=== PATIENT | female | born 1995 | race Caucasian/White ===

== ENCOUNTER 2023-05-29 08:09 | Inpatient (IN) ==
[2023-05-29] MEDS ORDERED: LIDOCAINE 1% LOCAL 20 ML VIAL INFIL PRN (08:50)
[2023-05-29] MEDS ORDERED: OXYTOCIN 30 UNITS/500 ML BAG IV PRN ×3 (08:50→19:52)
--- NOTE | 2023-05-29 08:53 | History & Physical Report ---
Date of Service May 29, 2023 Assessment & Plan (1) 37 weeks gestation of : (2) Pre-eclampsia in third trimester: (3) Rh negative status during : Plan admit, iv, labs. fhts categ 1. start pitocin. may need to reattempt arom. currently no evid of severe features. Admission and Anticipated Discharge Date Admission Date: May 29, 2023 History of Present Illness Chief Complaint: planned induction Primary Care Provider: Mahnaz Del Cid MD 27yo at 37+wks gloria presents to L&D for planned induction for preeclampsia, without severe features. Denies kaiser, visual change, ruq pain. No ctx. Regan balloon fell out at 3am today. PNC c/b 1. preeclampsia 2. rh neg PNL rh neg, ri, gbs neg OBH: g1 GYNH: nl paps, no stds Allergies Allergy/AdvReac Type Severity Reaction Status Date / Time No Known Allergies Allergy Verified 05/28/23 11:27 Home Medications Medication Instructions Recorded Confirmed Type Lactobacillus acidophilus and 1 cap PO DAILY 06/22/22 05/28/23 History rhamnosus 15 billion cell capsule (Probiotic) omega 7-ami-yih-fish oil 290 cap PO 11/01/22 05/28/23 History mg-430 mg-1.4 gram capsule (EPA-DHA 720) prenat.vits,adriel,vwn-xqrb-nabzm 1 tab PO DAILY 11/01/22 05/28/23 History magnesium PO 11/19/22 05/28/23 History Zyrtec DAILY 05/23/23 05/28/23 History Patient History Medical History Anxiety Asthma Surgical History History of ankle surgery S/P tonsillectomy S/P wisdom tooth extraction Family History Mother Crohn's disease Endometriosis Grandfather (Paternal) Esophageal cancer Non-Hodgkin lymphoma Lupus Melanoma Grandmother (Paternal) IBS (irritable bowel syndrome) Denies family history of Ovarian cancer Breast cancer Colorectal cancer Social History (Updated 11/19/22 @ 17:04 by Dannielle J Knepp) Smoking Status: Never smoker Second Hand Exposure: No; Do You Dip or Chew Tobacco: No; Tobacco Cessation Education Requested by Patient: No Hx Alcohol Use: No Hx Substance Use: No Preferred Language: Kittitian Communication Ability: Effective Visual Impairment: Limited Hearing Ability: Normal 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 Beliefs That Will Affect Care: None marital status: marital status details: Kenneth (28) [phone] Current Living Situation: Spouse Current Living Situation Comment: - Jozef current occupational status: employed 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 Other Information That Helps Us Care for You: No Feels Safe at Home: Yes Safety Concerns: Feels Safe At This Time Childhood Exposure to Second-Hand Smoke: No Diet: regular during the past year weight has: remained stable Gender Identity: Female Assistive Devices: Glasses Review of Systems as per Subjective / HPI Physical Exam Constitutional: WD/WN, vitals as above Respiratory: normal respiratory effort, lungs clear to auscultation Cardiovascular: Rate/Rhythm: regular rate and regular rhythm Gastrointestinal (Abdomen): soft gravid nt efw 7-8# Musculoskeletal: no edema nontender calves Neurologic: grossly normal DTRs +2 patellar Psychiatric: A+Ox3, euthymic affect Genitourinary: Manual OB Exam: + cervical dilation (3-4cm), + cervical effacement 50%, + station (post) -2 and + amniotic fluid (arom attempted, ? successful, will monitor) OB Exam Monitor Tracing: + external FHT monitor used, + external uterine monitor used (irreg), + category I and + normal FHT variability Results & Data Vital Signs (Past 12 Hours) Vital Signs Temp Pulse Resp BP 05/29/23 08:40 104 H 133/82 05/29/23 08:38 98.8 F 104 H 18 133/82 Coding Level of Care Code None Diagnoses 37 weeks gestation of Z3A.37 Pre-eclampsia in third trimester O14.93 Rh negative status during O26.899; Z67.91
[2023-05-29] MEDS: LACTATED RINGER'S 1,000 ML IV PRN ×2 (09:36→14:43)
[2023-05-29 09:51] LABS: Hematocrit (blood only) 35.6 % (37.0-47.0); Hemoglobin 12.7 g/dl (12.0-16.0); Mean Corpuscular Hemoglobin 32.6 pg (25.0-34.0); Mean Corpuscular Hgb Conc 35.7 g/dL (32.0-36.0); Mean Corpuscular Volume 91.5 fL (80.0-100.0); Mean Platelet Volume 11.6 fL (9.4-12.4); Platelet Count 192 K/uL (130-400); RDW Coefficient of Variation 12.7 % (11.5-14.5); RDW Standard Deviation 41.9 fL (36.4-46.3); Red Blood Count 3.89 M/uL (4.20-5.40); White Blood Count 14.45 K/ul (4.8-10.8)
[2023-05-29 10:13] LABS: Albumin Globulin Ratio 1.4 (0.9-2); Albumin Level 3.8 gm/dl (3.4-5.0); BUN Creatinine Ratio 10.3 (10-20); Bilirubin,Total 0.3 mg/dl (0.2-1.0); Calcium 9.5 mg/dl (8.6-10.3); Creatinine Clr Calc Pharmacy 146.8 ml/min; Est GFR (African American) 145.4 ml/min; Est GFR (Non-African American) 125.4 ml/min; Globulin 2.8 gm/dl (2.5-4.0); Total Protein 6.6 gm/dl (6.0-8.3)
--- NOTE | 2023-05-29 14:12 | Labor Progress Brief Note ---
Date of Service May 29, 2023 Subjective late entry, pt on birthing ball. breathing with some ctx. Assessment & Plan (1) 37 weeks gestation of : (2) Pre-eclampsia in third trimester: Plan progressing in labor, latent phase. will c/w pit. fhts categ 1. Admission and Anticipated Discharge Date Admission Date: May 29, 2023 Physical Exam Constitutional: WD/WN, vitals as above Genitourinary: Manual OB Exam: + cervical dilation 5 cm, + cervical effacement 50% and + station (mid position) -2 OB Exam Monitor Tracing: + external FHT monitor used, + external uterine monitor used (q2-3 pit at 9) and + category I Results & Data Vital Signs (Past 12 Hours) Vital Signs Temp Pulse Resp BP 05/29/23 14:09 90 140/68 05/29/23 13:39 83 133/72 05/29/23 13:10 82 136/78 05/29/23 12:30 97.9 F 05/29/23 12:39 87 132/75 05/29/23 12:10 82 139/76 05/29/23 11:40 77 131/79 05/29/23 11:09 81 132/84 05/29/23 10:39 86 136/77 05/29/23 10:30 97.9 F 05/29/23 10:10 77 133/74 05/29/23 08:45 98.8 F 05/29/23 09:39 84 134/79 05/29/23 08:40 104 H 133/82 05/29/23 08:38 98.8 F 104 H 18 133/82 Coding Level of Care Code None Diagnoses 37 weeks gestation of Z3A.37 Pre-eclampsia in third trimester O14.93
[2023-05-29] MEDS ORDERED: ePHEDrine sulfate 50 MG/ML AMP ONE (14:35)
[2023-05-29] MEDS ORDERED: BUPIVACAINE 0.25% PF 30 ML VIAL ONE (14:35)
[2023-05-29] MEDS ORDERED: LIDOCAINE 2%/EPINEPHRINE 1:200,000 20 ML PF ONE (14:35)
[2023-05-29] MEDS ORDERED: SODIUM CHLORIDE 0.9% PF INJ 10 ML VIAL ONE (14:35)
[2023-05-29] MEDS ORDERED: fentaNYL 2MCG/ML ROPIVACAINE 1.25MG/ML 100 ML BAG EPI ONE (14:35)
[2023-05-29] MEDS ORDERED: fentaNYL citrate PF 100 MCG/2 ML VIAL ONE (14:35)
[2023-05-29] MEDS ORDERED: ROPIVACAINE 0.5% PF 5 MG/ML 20 ML VIAL EPI PRN (14:39)
[2023-05-29] MEDS ORDERED: ePHEDrine sulfate 50 MG/ML AMP IV PRN (14:39)
[2023-05-29] MEDS ORDERED: fentaNYL 2MCG/ML ROPIVACAINE 1.25MG/ML 100 ML BAG EPI PRN (14:39)
[2023-05-29] MEDS ORDERED: NALOXONE HCL 1 MG in SODIUM CHLORIDE 0.9% 1,000 ML IV PRN (14:39)
[2023-05-29] MEDS ORDERED: diphenhydrAMINE 50 MG/ML VIAL IV PRN (14:39)
[2023-05-29] MEDS ORDERED: NALBUPHINE HCL INJ 10 MG/ML AMP IV PRN (14:39)
[2023-05-29] MEDS ORDERED: SODIUM CHLORIDE 0.9% PF INJ 10 ML VIAL EPI STA (14:39)
[2023-05-29] MEDS ORDERED: LIDOCAINE 2% MPF LOCAL 5 ML VIAL EPI PRN (14:39)
[2023-05-29] MEDS ORDERED: BUPIVACAINE 0.25% PF 30 ML VIAL EPI PRN (14:39)
[2023-05-29] MEDS ORDERED: LIDOCAINE 2%/EPINEPHRINE 1:200,000 20 ML PF EPI STA (14:39)
[2023-05-29] MEDS ORDERED: fentaNYL citrate PF 100 MCG/2 ML VIAL EPI PRN (14:39)
[2023-05-29] MEDS ORDERED: fentaNYL citrate PF 100 MCG/2 ML VIAL EPI STA (14:39)
[2023-05-29] MEDS ORDERED: BUPIVACAINE 0.25% PF 30 ML VIAL EPI STA (14:39)
[2023-05-29] MEDS ORDERED: SODIUM CHLORIDE 0.9% PF INJ 10 ML VIAL EPI PRN (14:39)
[2023-05-29] MEDS ORDERED: NALOXONE HCL 0.4 MG/1 ML VIAL/CARP IV PRN (14:39)
--- NOTE | 2023-05-29 14:41 | Anesthesiology Consultation ---
Date of Service May 29, 2023 Assessment & Plan Chart Review Chart Review: Patient NOT seen in Pre Admission Testing and Acceptable Risk for Labor Epidural History Height/Weight Height: 5 ft 4 in Weight: 78.925 kg Allergies Allergy/AdvReac Type Severity Reaction Status Date / Time No Known Allergies Allergy Verified 05/28/23 11:27 Medications Home Medications Medication Instructions Recorded Confirmed Last Taken Lactobacillus acidophilus and 1 cap PO DAILY 06/22/22 05/29/23 05/23/23 09:00 rhamnosus 15 billion cell capsule (Probiotic) omega 9-cso-tdp-fish oil 290 cap PO 11/01/22 05/28/23 05/23/23 09:00 mg-430 mg-1.4 gram capsule (EPA-DHA 720) prenat.vits,adriel,jrg-cuia-tqndr 1 tab PO DAILY 11/01/22 05/28/23 05/23/23 0900 magnesium PO 11/19/22 05/28/23 05/23/23 0900 Zyrtec DAILY 05/23/23 05/28/23 05/23/23 09:00 Active Medications Generic Name Dose Route Start Last Admin Trade Name Freq PRN Reason Stop Dose Admin Oxytocin 30 units in 500 mls @ 9 mls/hr 05/29/23 08:50 05/29/23 12:30 Pitocin IV 05/31/23 08:49 0.54 units/hr .Q24H PRN 9 mls/hr Labor Induction/Augmentation Titration Protocol 0.54 UNITS/HR Lactated Ringer's 1,000 mls @ 125 mls/hr 05/29/23 08:50 05/29/23 09:36 Lr IV 05/31/23 08:49 125 mls/hr .Q8H PRN Administration L&D Protocol Protocol Past Medical History Medical History (Updated 05/29/23 @ 14:12 by Pastora Wilde MD, FACOG) Anxiety Asthma Constipation Past Family History Family History Mother Crohn's disease Endometriosis Grandfather (Paternal) Esophageal cancer Non-Hodgkin lymphoma Lupus Melanoma Grandmother (Paternal) IBS (irritable bowel syndrome) Denies family history of Ovarian cancer Breast cancer Colorectal cancer Past Surgical History Surgical History History of ankle surgery 2017 S/P tonsillectomy S/P wisdom tooth extraction Social History Smoking Status: Never smoker Do You Dip or Chew Tobacco: No Hx Alcohol Use: No Hx Substance Use: No Review of Systems Constitutional: as per Subjective / HPI Physical Exam Vital Signs Last Vital Signs Temp 36.6 C 05/29/23 12:30 Pulse 91 H 05/29/23 14:38 Resp 18 05/29/23 08:38 BP 146/74 H 05/29/23 14:40 Pulse Ox 93 05/29/23 14:38 Constitutional WD/WN, vitals as above Respiratory normal respiratory effort, lungs clear to auscultation Cardiovascular Rate/Rhythm: regular rate and regular rhythm Psychiatric A+Ox3, euthymic affect Genitourinary Manual OB Exam: + cervical dilation + 5 cm, + cervical effacement + 50%, + station (mid position) + -2 and + amniotic fluid (arom attempted, ? successful, will monitor) OB Exam Monitor Tracing: + external FHT monitor used, + external uterine monitor used (q2-3 pit at 9), + category I and + normal FHT variability Testing Laboratory Results 05/29/23 09:20 05/29/23 09:20
[2023-05-29] MEDS ORDERED: CALCIUM CARBONATE 500 MG CHEWABLE TAB PO PRN (16:36)
[2023-05-29] MEDS ORDERED: DIPHTHERIA/TETANUS/PERTUSSIS Vaccine (Tdap, Age 7+yrs) 0.5mL SYR/VL IM ONE (19:52)
[2023-05-29] MEDS ORDERED: oxyCODONE/ACETAMINOPHEN 5mg/325mg TAB PO PRN (19:52)
[2023-05-29] MEDS ORDERED: HYDROCORTISONE ACETATE 25 MG SUPP PR PRN (19:52)
[2023-05-29] MEDS ORDERED: BENZOCAINE 20% SPRY 85 APPLN/85 GM CAN EXT PRN (19:52)
[2023-05-29] MEDS ORDERED: bisacodyL 10 MG SUPP PR PRN (19:52)
[2023-05-29] MEDS ORDERED: ACETAMINOPHEN 325 MG TAB PO PRN (19:52)
--- NOTE | 2023-05-29 20:03 | Anesthesia Procedure Note ---
Date of Service May 29, 2023 Anesthesia Post Epidural Note Vital Signs Vital Signs: Temp Pulse Resp BP Pulse Ox 36.7 C 93 H 18 141/63 H 97 05/29/23 18:30 05/29/23 19:58 05/29/23 19:43 05/29/23 19:58 05/29/23 19:40 Notes Mental Status: alert / awake / arousable and participated in evaluation Nausea / Vomiting: adequately controlled Pain: adequately controlled Airway Patency, RR, SpO2: stable & adequate BP & HR: stable & adequate Hydration State: stable & adequate Neuraxial Anesthesia: was administered and sensory block is resolving Anesthetic Complications: no major complications apparent and Pt Satisfied with anesthetic care Epidural: Removed without complications and With tip intact
[2023-05-29] MEDS: IBUPROFEN 600 MG TAB PO PRN (21:00)
[2023-05-29] MEDS: DOCUSATE SODIUM 100 MG CAP PO SCH (21:06)
[2023-05-30] MEDS: IBUPROFEN 600 MG TAB PO PRN ×4 (04:31→21:57)
--- NOTE | 2023-05-30 06:45 | Obstetrical Progress Note ---
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 Faye during the history and exam. I discussed the case with the resident and agree with the findings and plan as documented in the note. Any exceptions or clarifications are listed here: stable doing well, eating, voiding, ambulating, breast feeding. no rubio, visual change or ruq pain. rh neg, baby a neg. ri. abd soft ff 2 down nt, ext nt calves pod#1 s/p , mild preeclampsia, will dc home later today. bps have been stable. instructions reviewed. f/u 6wks pp. Documented By: Pastora Wilde MD, FACOG Subjective 27 yo post day 1 s/p Ambulation: ambulating normally Voiding: no voiding problems Passing Gas:: Yes Diet Tolerance:: regular diet Lochia:: Small Feeding Type:: breast feeding Current Pain Level: minimal Resting comfortably this AM. Denies RUBIO, CP, SOB, N/V/D, LE swelling/pain Review of Systems Review of Systems: reviewed, per HPI Physical Exam Physical Exam: General: patient resting comfortably, NAD, non-toxic in appearance, AA&O x 4, answers questions appropriately. Skin: warm, dry, intact HEENT: NC/AT, anicteric sclera, conjunctiva without injection, moist mucus membranes. Heart: +S1/S2, regular, no m/r/g Lungs: equal air entry bilaterally, no rales/rhonchi/wheezes Abd: +BS, soft, NT/ND, uterine fundus firm at umbilicus Ext: warm, no clubbing/cyanosis or edema, Jose's neg Neuro: nonfocal, patient AA&O x 4, speech intact, no facial droop, moving all extremities on command. Results & Data Vital Signs (Past 12 Hours) Vital Signs Temp Pulse Pulse Resp BP BP Pulse Ox 05/30/23 04:15 37 C 92 H 20 108/73 97 05/29/23 23:50 36.7 C 89 20 120/71 97 05/29/23 22:10 36.7 C 88 18 128/72 97 05/29/23 21:43 36.7 C 18 05/29/23 21:12 18 05/29/23 20:43 16 05/29/23 20:28 16 05/29/23 19:01 37.3 C 20 05/29/23 20:13 18 05/29/23 19:58 18 05/29/23 19:43 18 05/29/23 21:43 107 H 126/58 L 05/29/23 21:27 106 H 127/76 05/29/23 21:12 103 H 138/70 05/29/23 20:57 100 H 138/72 05/29/23 20:43 114 H 135/73 05/29/23 20:28 127 H 139/75 05/29/23 20:13 108 H 128/60 05/29/23 19:58 93 H 141/63 H 05/29/23 19:43 100 H 129/65 05/29/23 19:40 102 H 97 05/29/23 19:35 103 H 98 05/29/23 19:30 103 H 97 05/29/23 19:25 105 H 97 05/29/23 19:18 121 H 86 L 05/29/23 19:13 94 H 98 05/29/23 19:12 107 H 130/82 89 L 05/29/23 19:08 93 H 98 05/29/23 19:03 91 H 97 05/29/23 19:00 16 05/29/23 19:00 16 05/29/23 18:58 99 H 98 05/29/23 18:57 109 H 126/68 05/29/23 18:53 115 H 98 05/29/23 18:48 105 H 99 05/29/23 18:43 112 H 123/70 99 O2 Del Method 05/30/23 04:15 Room Air 05/29/23 23:50 Room Air 05/29/23 22:10 Room Air 05/29/23 21:43 05/29/23 21:12 05/29/23 20:43 05/29/23 20:28 05/29/23 19:01 05/29/23 20:13 05/29/23 19:58 05/29/23 19:43 05/29/23 21:43 05/29/23 21:27 05/29/23 21:12 05/29/23 20:57 05/29/23 20:43 05/29/23 20:28 05/29/23 20:13 05/29/23 19:58 05/29/23 19:43 05/29/23 19:40 05/29/23 19:35 05/29/23 19:30 05/29/23 19:25 05/29/23 19:18 05/29/23 19:13 05/29/23 19:12 05/29/23 19:08 05/29/23 19:03 05/29/23 19:00 05/29/23 19:00 05/29/23 18:58 05/29/23 18:57 05/29/23 18:53 05/29/23 18:48 05/29/23 18:43 Laboratory Results 05/29/23 05/29/23 Range/Units 09:20 09:20 WBC 14.45 H (4.8-10.8) K/ul RBC 3.89 L (4.20-5.40) M/uL Hgb 12.7 (12.0-16.0) g/dl Hct 35.6 L (37.0-47.0) % MCV 91.5 (80.0-100.0) fL MCH 32.6 (25.0-34.0) pg MCHC 35.7 (32.0-36.0) g/dL RDW Std Deviation 41.9 (36.4-46.3) fL RDW Coeff of [place] 12.7 (11.5-14.5) % Plt Count 192 (130-400) K/uL MPV 11.6 (9.4-12.4) fL Sodium 135 L (136-145) mmol/L Potassium 4.0 (3.5-5.1) mmol/L Chloride 104 (98-107) mmol/L Carbon Dioxide 22 (21-32) mmol/L Anion Gap 9 (3-11) BUN 6 (6-23) mg/dl Creatinine 0.58 L (0.6-1.2) mg/dl Est Cr Clr Drug Dosing 146.8 ml/min Est GFR ( Amer) 145.4 ml/min Est GFR (Non-Af Amer) 125.4 ml/min BUN/Creatinine Ratio 10.3 (10-20) Glucose 87 (70-99(Fasting)) mg/dl Calcium 9.5 (8.6-10.3) mg/dl Total Bilirubin 0.3 (0.2-1.0) mg/dl Direct Bilirubin 0.0 (0-0.2) mg/dl AST 18 (13-39) U/L ALT 9 (7-52) U/L Alkaline Phosphatase 132 H (34-104) U/L Total Protein 6.6 (6.0-8.3) gm/dl Albumin 3.8 (3.4-5.0) gm/dl Globulin 2.8 (2.5-4.0) gm/dl Albumin/Globulin Ratio 1.4 (0.9-2) Resident Activity Tracking Resident Involvement: Resident Care Provided Care Provided: Adult Hospital Medicine
[2023-05-30] MEDS: DOCUSATE SODIUM 100 MG CAP PO SCH ×2 (08:18→21:57)
[2023-05-30] MEDS: PRENATAL VITAMIN 1 TAB PO SCH (08:18)
[2023-05-30] MEDS ORDERED: bisacodyL 5 MG TABEC PO SCH (20:00)
[2023-05-31] MEDS: IBUPROFEN 600 MG TAB PO PRN ×2 (04:25→08:56)
--- NOTE | 2023-05-31 07:24 | Obstetrical Progress Note ---
Date of Service May 31, 2023 Assessment & Plan (1) (normal spontaneous vaginal delivery): Plan: encourage ambulation pain control plan for discharge this morning Admission and Anticipated Discharge Date Admission Date: May 29, 2023 Supervising Physician Co-Signing Physician Notes Resident Physician Supervision Note: I interviewed and examined the patient. Discussed with Dr. Faye and agree with findings and plan as documented in the note. Any exceptions or clarifications are listed here: Patient was ready to go yesterday but peds wanted to keep baby. Cleared for d/c today. Reviewed instructions. Documented By: Lucia Good MD, FACOG Subjective 27 yo post day 2 s/p Ambulation: ambulating normally Voiding: no voiding problems Passing Gas:: Yes Diet Tolerance:: regular diet Lochia:: Small Feeding Type:: breast feeding Current Pain Level: minimal Resting comfortably this AM. Plan was for dc yesterday, baby not cleared to leave, mom opted to stay. Denies RUBIO, CP, SOB, N/V/D, LE swelling/pain Review of Systems Review of Systems: reviewed, per HPI Physical Exam Physical Exam: General: patient resting comfortably, NAD, non-toxic in appearance, AA&O x 4, answers questions appropriately. Skin: warm, dry, intact HEENT: NC/AT, anicteric sclera, conjunctiva without injection, moist mucus membranes. Heart: +S1/S2, regular, no m/r/g Lungs: equal air entry bilaterally, no rales/rhonchi/wheezes Abd: +BS, soft, NT/ND, uterine fundus firm at umbilicus Ext: warm, no clubbing/cyanosis or edema, Jose's neg Neuro: nonfocal, patient AA&O x 4, speech intact, no facial droop, moving all extremities on command. Results & Data Vital Signs (Past 12 Hours) Vital Signs Temp Pulse Resp BP Pulse Ox O2 Del Method 05/30/23 23:45 37.0 C 80 16 122/68 Room Air 05/30/23 20:30 37.3 C 84 20 128/70 96 Room Air Resident Activity Tracking Resident Involvement: Resident Care Provided Care Provided: Adult Hospital Medicine
[2023-05-31] MEDS: PRENATAL VITAMIN 1 TAB PO SCH (08:56)
[2023-05-31] MEDS: DOCUSATE SODIUM 100 MG CAP PO SCH (08:56)
--- NOTE | 2023-06-03 10:59 | Delivery Summary ---
Vaginal Delivery Summary Date of Service June 03, 2023 Vaginal Delivery Summary and 2nd Degree LAC Late entry, delivery date 05/29/23 The patient dilated to complete and pushed to deliver a viable female Apgars 8 and 9 via over 2nd degree perineal laceration. Mouth and nose bulb suctioned at perineum. Shoulders and body delivered with ease. Infant was vigorous and crying at . Cord clamped at 30 seconds of life and to maternal abdomen where the cord was then doubly clamped and cut. Placenta delivered spontaneously and intact, three-vessel cord. Hemostasis achieved with dilute pitocin and uterine massage and drainage of the bladder for approximately 300 cc under sterile conditions. Laceration repaired in routine fashion with 3- 0 vicryl. Cervix and sulci intact. EBL 300 cc. Mother and baby stable in recovery. [facility] [place] Vaginal Delivery Charge Delivery Type Details: and 2nd Degree LAC
== END 2023-05-31 11:15 | disposition home or self-care (01) | DRG 807 ==
LOC: 4S1 08:09 → 4E2 22:20

== ENCOUNTER 2025-07-01 07:44 | Inpatient (IN) ==
[2025-07-01] MEDS ORDERED: CALCIUM CARBONATE 500 MG CHEWABLE TAB PO PRN (08:46)
[2025-07-01] MEDS ORDERED: LIDOCAINE 1% LOCAL 20 ML VIAL INFIL PRN (08:46)
[2025-07-01] MEDS ORDERED: OXYTOCIN 30 UNITS/NSS 30 UNITS/500 ML BAG IV PRN ×2 (08:46→20:22)
--- NOTE | 2025-07-01 08:57 | History & Physical Report ---
Date of Service July 01, 2025 Assessment & Plan (1) Encounter for induction of labor: (2) Mild preeclampsia: (3) Rh negative status during : (4) Carrier of group B Streptococcus: Plan 29 yo female here for IOL.Patient admitted and IV started and labs ordered. Patient made aware of duty doctor. Admission and Anticipated Discharge Date Admission Date: July 01, 2025 History of Present Illness Primary Care Provider: Mahnaz Del Cid MD Patient is a 29 yo female currently at 37+EGA with an JAZZY 07/22/25 as determined by US who is here for reason for induction. Her was complicated by mild pre-eclampsia and RH negative. No contractions; movement present; No fluid loss; No bloody show External FHT and external uterine monitors used; category1 tracing; normal FHT variability Had regular appointments with OB. Blood Type A Negative 12/15/24 Antibody Screen NEGATIVE Hgb 12.3 g/dl (12.0-16.0) Hct 37.5 % (37.0-47.0) MCV 94.5 fL (80.0-100.0) Plt Count 194 K/uL (130-400) Rubella IgG Antibody Immune (Immune) RPR Nonreactive (Nonreactive) Treponema pallidum Ab Negative (Negative) Hep Bs Antigen Negative (Negative) Hep Bs Antigen NON-REACTIVE (NON-REACTIVE) Hepatitis C Antibody Negative (Negative) Hepatitis C Ab (EIA) NON-REACTIVE (NON-REACTIVE) HIV 1&2 Ab/P24 Ag 4thGn Negative (Negative) HIV (1&2) Ag & Ab Conf NON-REACTIVE (NON-REACTIVE) Glucose 1 Hr 50 gm 144 mg/dl (70-130) H Maternal Serum AFP 40.2 ng/mL OB Optional Labs: Chlamydia trachomatis RNA Not Detected (NotDetected) Neisseria gonorrhoeae RNA Not Detected (NotDetected) Thyroid Stimulating Hormone (TSH) 1.528 uIu/ml (0.300-4.500) Labs Reviewed: neg cf/sma last - sln Allergies Allergy/AdvReac Type Severity Reaction Status Date / Time No Known Allergies Allergy Verified 06/30/25 10:34 Home Medications Medication Instructions Recorded Confirmed Type prenat.vits,adriel,kda-vcjh-npmow 1 tab PO DAILY 11/01/22 07/01/25 History magnesium 400 mg PO DAILY 11/19/22 07/01/25 History Lactobacillus combo no.23 [Hal 1 tab PO DAILY 12/10/24 07/01/25 History Probiotic] fish oil-dha-epa 1 tab PO DAILY 12/10/24 07/01/25 History aspirin 81 mg tablet,delayed 81 mg PO DAILY 02/02/25 07/01/25 History release (Adult Low Dose Aspirin) Past Med/Surg History Problem List (Updated 07/01/25 @ 09:34 by Pastora Wilde MD, FACOG) Carrier of group B Streptococcus Encounter for induction of labor Mild preeclampsia History of pre-eclampsia Nocturnal oxygen desaturation Insomnia Encounter for anatomic survey Encounter for supervision of normal intrauterine in multigravida, antepartum Early stage of Rh negative status during Medical History Galactorrhea Fatigue Encounter for screening and preventative care Non-healing skin lesion Pounding heartbeat Complex cyst of right ovary Chronic constipation Pain in female genitalia on intercourse Pelvic pain IBS (irritable bowel syndrome) Irregular bowel habits Family history of Crohn's disease Anxiety Constipation Pre-eclampsia in third trimester Asthma Surgical History History of ankle surgery 2017 S/P wisdom tooth extraction S/P tonsillectomy Family History Mother Crohn's disease Endometriosis Grandfather (Paternal) Esophageal cancer Non-Hodgkin lymphoma Lupus Melanoma Grandmother (Paternal) IBS (irritable bowel syndrome) Denies family history of Ovarian cancer Breast cancer Colorectal cancer Social History (Updated 07/01/25 @ 07:55 by Sarah See, RODOLFO) Smoking Status: Never smoker Second Hand Exposure: No; Do You Dip or Chew Tobacco: No; Hx Alcohol Use: No Hx Substance Use: No Preferred Language: Nepali Communication Ability: Effective Visual Impairment: Limited Hearing Ability: Normal Pr Manager Required: No Beliefs That Will Affect Care: None marital status: marital status details: Kenneth (30) [phone] Current Living Situation: Spouse Current Living Situation Comment: Lives with and daughter and 2 dogs current occupational status: employed 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 Physical Exam Physical Exam: General: Alert and oriented. No acute distress CV: Regular rate and rhythm. No murmurs. Respiratory: CTA bilaterally. No rhonchi, wheezes, or crackles. No increased work of breathing. Abdomen: Gravid; Soft, nontender upon palpation Pelvic: Dilated 2 cm; Effacement 25%; Station -[address] Wilde. Lower extremities: No LE edema. No deep calf pain. Jose's negative bilaterally. Neurologic: DTR jules. No Babinski sign or clonus present. Results & Data Results & Data Vital Signs (Past 12 Hours) Vital Signs Temp Pulse Resp BP 07/01/25 08:00 91 H 140/82 07/01/25 07:57 36.6 C 18 Supervising Physician Co-Signing Physician Notes Resident Physician Supervision Note: I was present with Dr. Walker during the history and exam. I discussed the case with the resident and agree with the findings and plan as documented in the note. Any exceptions or clarifications are listed here: 29yo at 37wks admitted to for planned induction secondary to mild preeclampsia. Patient today denies akiser, visual change, abd pain. No ctx, rom, vb. +FM. Did have hinds ripening balloon placed last pm and fell out around 930pm. PNC c/b 1. mild preeclampia, normal growth u/s on 06/23, nl labs 2. rh neg, eval pp, had rhogam at 28wks 3. gbs +urine,trt in labor PNL rh pos, ri, gbs +urine OBH: x 1 GYNH:nl pap, no stds Exam: abd soft gravid nt, efw 7-8#. ext no edema. sve barely reachable cx, very posterior, ?2cm/25%/-3 post. fhts categ 1. A/P mild preeclampsia, admit, iv, labs. fhts categ 1. pitocin, arom when able, pcn for gbs, rhogam eval pp. Documented By: Pastora Wilde MD, FACOG Resident Activity Tracking Resident Involvement: Resident Care Provided Care Provided: [facility]
[2025-07-01 09:10] LABS: Hematocrit (blood only) 36.5 % (37.0-47.0); Hemoglobin 12.3 g/dl (12.0-16.0); Mean Corpuscular Hemoglobin 31.4 pg (25.0-34.0); Mean Corpuscular Volume 93.1 fL (80.0-100.0); Platelet Count 183 K/uL (130-400); RDW Standard Deviation 42.3 fL (36.4-46.3); Red Blood Count 3.92 M/uL (4.20-5.40); White Blood Count 13.38 K/ul (4.8-10.8)
[2025-07-01] MEDS: LACTATED RINGER'S 1,000 ML IV PRN (09:15)
[2025-07-01] MEDS: OXYTOCIN 30 UNITS/NSS 30 UNITS/500 ML BAG IV PRN (09:15)
[2025-07-01 09:25] LABS: Alanine Aminotransferase 10.0 U/L (7-52); Albumin Globulin Ratio 1.2 (0.9-2); Albumin Level 3.5 gm/dl (3.4-5.0); Alkaline Phosphatase 149.0 U/L (34-104); Anion Gap 7.0 (3-11); Bilirubin,Total 0.3 mg/dl (0.2-1.0); Blood Urea Nitrogen 7.0 mg/dl (6-23); Calcium 9.0 mg/dl (8.6-10.3); Carbon Dioxide 23.0 mmol/L (21-32); Chloride 106.0 mmol/L (98-107); Creatinine Clr Calc Pharmacy 155.6 ml/min; Globulin 3.0 gm/dl (2.5-4.0); Glucose 80.0 mg/dl (70-99(Fasting)); Potassium 3.8 mmol/L (3.5-5.1); Sodium 136.0 mmol/L (136-145); Total Protein 6.5 gm/dl (6.0-8.3)
[2025-07-01] MEDS: PENICILLIN GK 6 MU in DEXTROSE 5% 250 ML IV STA (11:58)
--- NOTE | 2025-07-01 15:18 | Labor Progress Brief Note ---
Date of Service July 01, 2025 Subjective comfortable, no pain Assessment & Plan (1) Encounter for induction of labor: (2) Mild preeclampsia: Plan c/w pit and pcn. see how arom helps labor pattern. fhts categ 1. Admission and Anticipated Discharge Date Admission Date: July 01, 2025 Physical Exam Constitutional: WD/WN, vitals as above Genitourinary: Manual OB Exam: + cervical dilation 3 cm, + cervical effacement (75%), + station -2 and + amniotic fluid (arom) clear OB Exam Monitor Tracing: + external FHT monitor used, + external uterine monitor used (q3-4), + category I and + normal FHT variability Results & Data Vital Signs (Past 12 Hours) Vital Signs Temp Pulse Resp BP 07/01/25 14:49 79 134/74 07/01/25 13:53 83 20 138/83 07/01/25 13:00 82 144/75 H 07/01/25 11:58 82 20 133/86 07/01/25 11:02 97.7 F 90 20 137/81 07/01/25 09:58 81 18 128/71 07/01/25 09:23 83 18 132/72 07/01/25 08:00 91 H 140/82 07/01/25 07:57 97.9 F 18 Coding Level of Care Code None Diagnoses Encounter for induction of labor Z34.90 Mild preeclampsia O14.00
[2025-07-01] MEDS: PENICILLIN GK 3 MU in DEXTROSE 5% 100 ML IV PRN (16:11)
[2025-07-01] MEDS ORDERED: SODIUM CHLORIDE 0.9% PF INJ 10 ML VIAL EPI PRN (17:13)
[2025-07-01] MEDS ORDERED: NALOXONE HCL 1 MG in SODIUM CHLORIDE 0.9% 1,000 ML IV PRN (17:13)
[2025-07-01] MEDS ORDERED: NALOXONE HCL 0.4 MG/1 ML VIAL/CARP IV PRN (17:13)
[2025-07-01] MEDS ORDERED: LIDOCAINE 2% MPF LOCAL 5 ML VIAL EPI PRN (17:13)
[2025-07-01] MEDS ORDERED: NALBUPHINE HCL INJ 10 MG/ML AMP IV PRN (17:13)
[2025-07-01] MEDS ORDERED: ROPIVACAINE 0.5% PF 5 MG/ML 20 ML VIAL EPI PRN (17:13)
[2025-07-01] MEDS ORDERED: diphenhydrAMINE 50 MG/ML VIAL IV PRN (17:13)
[2025-07-01] MEDS ORDERED: fentANYL 2 MCG/ML BUPIVacaine 0.125%-NSS 100ML BAG EPI PRN (17:13)
[2025-07-01] MEDS ORDERED: BUPIVACAINE 0.25% PF 30 ML VIAL EPI PRN (17:13)
--- NOTE | 2025-07-01 17:15 | Anesthesiology Consultation ---
Date of Service July 01, 2025 Assessment & Plan Chart Review Chart Review: Patient NOT seen in Pre Admission Testing and Acceptable Risk for Labor Epidural Consults Requested none ASA ASA2 Proposed Anesthesia Anesthesia Type: Labor Epidural Risk / Benefits Reviewed With: PT / POA / Parent / Guardian, Accepts Plan and Informed Consent Obtained History Height/Weight Height: 5 ft 4 in Weight: 85.729 kg Allergies Allergy/AdvReac Type Severity Reaction Status Date / Time No Known Allergies Allergy Verified 06/30/25 10:34 Medications Home Medications Medication Instructions Recorded Confirmed Last Taken prenat.vits,adriel,cby-ecws-cpkgk 1 tab PO DAILY 11/01/22 07/01/25 06/30/25 magnesium 400 mg PO DAILY 11/19/22 07/01/25 06/30/25 Lactobacillus combo no.23 [Hal 1 tab PO DAILY 12/10/24 07/01/25 06/30/25 Probiotic] fish oil-dha-epa 1 tab PO DAILY 12/10/24 07/01/25 06/30/25 aspirin 81 mg tablet,delayed 81 mg PO DAILY 02/02/25 07/01/25 06/30/25 release (Adult Low Dose Aspirin) Active Medications Generic Name Dose Route Start Last Admin Trade Name Freq PRN Reason Stop Dose Admin Lactated Ringer's 1,000 mls @ 125 mls/hr 07/01/25 08:46 07/01/25 16:12 Lr IV 07/03/25 08:45 125 mls/hr .Q8H PRN Administration L&D Protocol Protocol Oxytocin 30 units in 500 mls @ 13 mls/hr 07/01/25 08:46 07/01/25 14:30 Pitocin 30 Units/Nss IV 07/03/25 08:45 0.78 units/hr .Q24H PRN 13 mls/hr Labor Induction/Augmentation Titration Protocol 0.78 UNITS/HR Penicillin G Potassium 3 mu/ 106 mls @ 100 mls/hr 07/01/25 12:09 07/01/25 16:11 Dextrose IV 07/11/25 12:08 100 mls/hr Q4H PRN Administration GBS(+) Until Delivery NPO Date Last Intake of Fluids: 07/01/25 Time Last Intake of Fluids: 17:00 Date Last Intake of Solids: 07/01/25 Time Last Intake of Solids: 06:30 Past Medical History Medical History Galactorrhea Fatigue Encounter for screening and preventative care Non-healing skin lesion Pounding heartbeat Complex cyst of right ovary Chronic constipation Pain in female genitalia on intercourse Pelvic pain IBS (irritable bowel syndrome) Irregular bowel habits Family history of Crohn's disease Anxiety Constipation Pre-eclampsia in third trimester Asthma Exercise / Class Metabolic Activity 1 > 8 Run/Swim/Ski/Tennis Past Family History Family History Mother Crohn's disease Endometriosis Grandfather (Paternal) Esophageal cancer Non-Hodgkin lymphoma Lupus Melanoma Grandmother (Paternal) IBS (irritable bowel syndrome) Denies family history of Ovarian cancer Breast cancer Colorectal cancer Past Surgical History Surgical History History of ankle surgery 2017 S/P wisdom tooth extraction S/P tonsillectomy Past Anesthesia History No Hx of Anesthesia Complications and No Family Hx of Anesthesia Complications History of PONV No Hx of PONV and No Hx of Motion Sickness Social History Smoking Status: Never smoker Do You Dip or Chew Tobacco: No Hx Alcohol Use: No Hx Substance Use: No substance use type: does not use Review of Systems ROS Unobtainable: All systems reviewed & are unremarkable except as noted in HPI & below Physical Exam Vital Signs Last Vital Signs Temp 36.5 C 07/01/25 14:49 Pulse 81 07/01/25 17:11 Resp 20 07/01/25 15:50 BP 130/69 07/01/25 16:50 Pulse Ox 99 07/01/25 17:11 ENMT Mouth: no TMJ abnormality Thyromental Distance: > or= 3.5 Finger Breadths Mallampati Class: II Neck normal visual inspection and trachea midline; neck extension not limited Respiratory normal respiratory effort Auscultation: lungs clear to auscultation bilaterally Cardiovascular Rate/Rhythm: regular rate and regular rhythm Heart Sounds: no murmur Musculoskeletal Spine: normal cervical ROM Extremities: full ROM of extremities Neurologic moves all extremities Psychiatric Orientation: alert and oriented x 3 Testing Laboratory Results 07/01/25 08:55 07/01/25 08:55
[2025-07-01] MEDS: fentANYL 2 MCG/ML BUPIVacaine 0.125%-NSS 100ML BAG ONE (17:30)
[2025-07-01] MEDS: LIDOCAINE 2%/EPINEPHRINE 1:200,000 20 ML PF ONE (17:35)
[2025-07-01] MEDS: BUPIVACAINE 0.25% PF 30 ML VIAL ONE (17:35)
[2025-07-01] MEDS: SODIUM CHLORIDE 0.9% PF INJ 10 ML VIAL ONE (18:29)
[2025-07-01] MEDS: BUPIVACAINE 0.25% PF 30 ML VIAL EPI STA (18:29)
[2025-07-01] MEDS: SODIUM CHLORIDE 0.9% PF INJ 10 ML VIAL EPI STA (18:30)
[2025-07-01] MEDS: LIDOCAINE 2%/EPINEPHRINE 1:200,000 20 ML PF EPI STA (18:30)
--- NOTE | 2025-07-01 18:57 | Labor Progress Brief Note ---
Date of Service July 01, 2025 Subjective pt comfortable, no pain issues. Assessment & Plan (1) Mild preeclampsia: (2) Encounter for induction of labor: (3) Carrier of group B Streptococcus: Plan great cx change. likely progressing fast. if persistent deep variables will plan amnioinfusion. reviewed with couple. fhts categ 1 currently but has been categ 2. Admission and Anticipated Discharge Date Admission Date: July 01, 2025 Physical Exam Constitutional: WD/WN, vitals as above Genitourinary: Manual OB Exam: + cervical dilation 6 cm (8cm with ctx), + cervical effacement 80% and + station 0 OB Exam Monitor Tracing: + external FHT monitor used (+ scalp stim response. ), + external uterine monitor used, + intra-uterine pressure catheter used (to better assess decels. ), + category II (variables at times) and + early decelerations present (at times. ) Results & Data Vital Signs (Past 12 Hours) Vital Signs Temp Pulse Resp BP Pulse Ox 07/01/25 18:51 94 H 97 07/01/25 18:46 97 H 99 07/01/25 18:43 102 H 139/72 07/01/25 18:41 91 H 97 07/01/25 18:36 95 H 97 07/01/25 18:31 96 H 97 07/01/25 18:29 98 H 20 132/67 07/01/25 18:28 88 137/71 07/01/25 18:26 109 H 98 07/01/25 18:21 83 97 07/01/25 18:16 94 H 98 07/01/25 18:15 93 H 18 138/66 07/01/25 18:11 101 H 98 07/01/25 18:06 91 H 99 07/01/25 18:01 88 100 07/01/25 17:57 77 18 135/65 07/01/25 17:56 82 99 07/01/25 17:51 86 127/60 98 07/01/25 17:46 95 H 18 119/64 97 07/01/25 17:41 96 H 97 07/01/25 17:39 93 H 18 115/66 07/01/25 17:37 90 18 127/62 07/01/25 17:36 88 99 07/01/25 17:35 83 18 120/57 L 07/01/25 17:33 86 18 123/64 07/01/25 17:31 99 07/01/25 17:31 89 07/01/25 17:31 89 18 125/65 07/01/25 17:29 79 18 126/63 07/01/25 17:27 90 18 124/67 07/01/25 17:26 79 99 07/01/25 17:25 65 18 141/78 H 07/01/25 17:21 80 98 07/01/25 17:17 77 18 137/78 07/01/25 17:16 84 100 07/01/25 17:11 81 99 07/01/25 17:06 90 99 07/01/25 17:01 97.7 F 76 20 100 07/01/25 16:50 79 130/69 07/01/25 15:50 82 20 129/77 07/01/25 14:49 97.7 F 79 20 134/74 07/01/25 13:53 83 20 138/83 07/01/25 13:00 82 144/75 H 07/01/25 11:58 82 20 133/86 07/01/25 11:02 97.7 F 90 20 137/81 07/01/25 09:58 81 18 128/71 07/01/25 09:23 83 18 132/72 07/01/25 08:00 91 H 140/82 07/01/25 07:57 97.9 F 18 Coding Level of Care Code None Diagnoses Mild preeclampsia O14.00 Encounter for induction of labor Z34.90 Carrier of group B Streptococcus Z22.330
--- NOTE | 2025-07-01 20:01 | Delivery Summary ---
Vaginal Delivery Summary Date of Service July 01, 2025 Vaginal Delivery Summary and 2nd Degree LAC The patient dilated to complete and pushed to deliver a viable female infant Apgars 8 and 9 via over 2nd degree perineal laceration. Mouth and nose bulb suctioned at perineum. Body cord noted and delivered through. Shoulders and body delivered with ease. was vigorous and crying at . Cord clamped at 45 seconds of life and to maternal abdomen where the cord was then doubly clamped and cut. Placenta delivered spontaneously and intact, three-vessel cord. Hemostasis achieved with dilute pitocin and uterine massage and drainage of the bladder for approximately 600 cc under sterile conditions. Cervix and sulci intact. Laceration repaired in routine fashion with 3-0 vicryl. QBL 51 cc. Mother and baby stable in recovery. [facility] [place] Vaginal Delivery Charge Delivery Type Details: and 2nd Degree LAC
[2025-07-01] MEDS ORDERED: ACETAMINOPHEN 325 MG TAB PO PRN (20:22)
[2025-07-01] MEDS ORDERED: HYDROCORTISONE ACETATE 25 MG SUPP PR PRN (20:22)
[2025-07-01] MEDS: DIPHTHER/TETAN/PERTUS Vaccine (Tdap, Adol/Adult) 0.5mL IM ONE (20:42)
[2025-07-01] MEDS: BENZOCAINE 20% SPRY 85 APPLN/85 GM CAN EXT PRN (21:07)
[2025-07-01] MEDS: DOCUSATE SODIUM 100 MG CAP PO SCH (21:07)
[2025-07-01] MEDS: IBUPROFEN 600 MG TAB PO PRN (21:07)
--- NOTE | 2025-07-01 22:26 | Anesthesia Procedure Note ---
Date of Service July 01, 2025 Anesthesia Post Epidural Note Vital Signs Vital Signs: Temp Pulse Resp BP Pulse Ox 98.4 F 102 H 16 123/55 L 96 07/01/25 20:58 07/01/25 21:58 07/01/25 21:28 07/01/25 21:58 07/01/25 19:56 Notes Mental Status: alert / awake / arousable and participated in evaluation Nausea / Vomiting: adequately controlled Pain: adequately controlled Airway Patency, RR, SpO2: stable & adequate BP & HR: stable & adequate Hydration State: stable & adequate Neuraxial Anesthesia: was administered and sensory block is resolving Anesthetic Complications: no major complications apparent and Pt Satisfied with anesthetic care Epidural: Removed without complications and With tip intact
[2025-07-02 03:04] VITALS: RESP 16; O2SAT 95
--- NOTE | 2025-07-02 06:47 | Obstetrical Progress Note ---
Date of Service July 02, 2025 Assessment & Plan (1) Mild preeclampsia: (2) Rh negative status during : Plan Assessment and plan 29 yo post- day 1 s/p Fells well today. Vital signs stable Continue post- care Encourage ambulation and Pain controlled with ibuprofen Hgb stable Discharge home today, follow up with in 6 weeks. Admission and Anticipated Discharge Date Admission Date: July 01, 2025 Supervising Physician Co-Signing Physician Notes Resident Physician Supervision Note: I was present with Dr. Walker during the history and exam. I discussed the case with the resident and agree with the findings and plan as documented in the note. Any exceptions or clarifications are listed here: stable routine care, eating, voiding, ambulating. bleeding decreased, breast feeding, rh neg, baby rh neg. abd soft ff 2 down nt, ext nt calves. ppd#1 s/p , doing well. desires dc home. instructions reviewed. f/u 6 wks pp check. Documented By: Pastora Wilde MD, FACOG Subjective Post- HPI 29 yo post- day 1 s/p Ambulation: ambulating normally Voiding: no voiding problems Passing Gas:: Yes Diet Tolerance:: regular diet Lochia:: Small Feeding Type:: bottle feeding Current Pain Level:slight pain, well controlled with analgesics. Resting comfortably this AM in NAD. Denies RUBIO, CP, SOB, N/V/D, LE pain/swelling. Review of Systems Review of Systems: As per HPI. Physical Exam Physical Exam: Post- PE General: patient resting comfortably, NAD, non-toxic in appearance, AA&O x 4, answers questions appropriately. Skin: warm, dry, intact HEENT: NC/AT, anicteric sclera, conjunctiva without injection, moist mucus membranes. Heart: +S1/S2, regular, no m/r/g Lungs: equal air entry bilaterally, no rales/rhonchi/wheezes Abd: +BS, soft, NT/ND, uterine fundus firm at umbilicus Ext: warm, no clubbing/cyanosis or edema, Jose's neg. Neuro: nonfocal, patient AA&O x 4, speech intact, no facial droop, moving all extremities on command. Results & Data Vital Signs (Past 12 Hours) Vital Signs Temp Pulse Pulse Resp BP BP Pulse Ox 07/02/25 03:03 36.8 C 83 16 124/78 95 07/01/25 23:04 37.2 C 89 18 119/73 96 07/01/25 21:58 36.8 C 18 07/01/25 21:58 102 H 123/55 L 07/01/25 21:43 93 H 124/61 07/01/25 21:28 16 07/01/25 21:28 91 H 135/60 07/01/25 21:13 83 123/59 L 07/01/25 20:58 36.9 C 18 07/01/25 20:58 78 137/72 07/01/25 20:43 18 07/01/25 20:43 84 131/68 07/01/25 20:28 16 07/01/25 20:28 85 149/69 H 07/01/25 20:13 16 07/01/25 20:13 102 H 137/103 H 07/01/25 19:58 18 07/01/25 19:58 101 H 124/71 07/01/25 19:56 98 H 96 07/01/25 19:51 93 H 97 07/01/25 19:46 99 H 98 07/01/25 19:41 106 H 98 07/01/25 19:36 100 H 100 07/01/25 19:31 99 H 98 07/01/25 19:28 100 H 132/79 07/01/25 19:26 102 H 98 07/01/25 19:21 103 H 97 07/01/25 19:16 104 H 95 07/01/25 19:13 87 135/69 07/01/25 19:11 91 H 99 07/01/25 19:06 93 H 99 07/01/25 19:01 107 H 97 07/01/25 19:00 36.8 C 18 07/01/25 18:59 101 H 127/69 07/01/25 18:56 103 H 97 07/01/25 18:51 94 H 97 07/01/25 18:46 97 H 99 O2 Del Method 07/02/25 03:03 Room Air 07/01/25 23:04 Room Air 07/01/25 21:58 07/01/25 21:58 07/01/25 21:43 07/01/25 21:28 07/01/25 21:28 07/01/25 21:13 07/01/25 20:58 07/01/25 20:58 07/01/25 20:43 07/01/25 20:43 07/01/25 20:28 07/01/25 20:28 07/01/25 20:13 07/01/25 20:13 07/01/25 19:58 07/01/25 19:58 07/01/25 19:56 07/01/25 19:51 07/01/25 19:46 07/01/25 19:41 07/01/25 19:36 07/01/25 19:31 07/01/25 19:28 07/01/25 19:26 07/01/25 19:21 07/01/25 19:16 07/01/25 19:13 07/01/25 19:11 07/01/25 19:06 07/01/25 19:01 07/01/25 19:00 07/01/25 18:59 07/01/25 18:56 07/01/25 18:51 07/01/25 18:46 Resident Activity Tracking Resident Involvement: Resident Care Provided Care Provided: Adult Hospital Medicine
[2025-07-02] MEDS: PRENATAL VITAMIN 1 TAB PO SCH (08:03)
[2025-07-02 20:38] VITALS: BP 121/76; PULSE 90; TEMP 98.4
== END 2025-07-02 20:45 | disposition home or self-care (01) | DRG 806 ==
LOC: 4S1 07:44 → 4E2 22:39